=== PATIENT | female | born 1965 | race Two or more races ===

== ENCOUNTER 2019-01-10 17:47 | Emergency (ER) | payer OTHER ==
[~2019-01-10] VITALS: Ht 165.1 cm; Wt 79.4 kg
[~2019-01-10 17:47] MED LIST: KETO10TA2 PO; LAMICTAL200 M1; REMERON30 MG; RISPERDAL2 MG; SYNTHROID75 MCG; XANAX2 MG
[2019-01-10] MEDS ORDERED: LIPITOR20 MG (18:09)
[2019-01-10] MEDS ORDERED: SEROQUEL XR200 MG (18:09)
[2019-01-10] MEDS ORDERED: TRAZODONE HCL100 MG (18:10)
== END 2019-01-10 21:16 | disposition home or self-care (01) ==
LOC: ER 17:47
DX: M54.6 Pain in thoracic spine (principal); S39.012S Strain of muscle, fascia and tendon of lower back, sequela; X50.0XXS Overexertion from strenuous movement or load, sequela

== ENCOUNTER 2021-04-29 07:00 | Inpatient (IN) | payer OTHER ==
[~2021-04-29] VITALS: Ht 167.6 cm; Wt 77.1 kg
[~2021-04-29 07:00] MED LIST changes: +LIPITOR20 MG; +SEROQUEL XR200 MG; +TRAZODONE HCL100 MG
[2021-04-29] MEDS ORDERED: TRAZADONE PO (08:01)
[2021-04-29] MEDS ORDERED: NEURIN SL (08:01)
[2021-05-01] MEDS ORDERED: COZAAR25 MG PO (13:21)
== END 2021-05-08 10:55 | disposition home or self-care (01) | DRG 743 ==
LOC: OB/GYN 05-06 05:50 → O/R 05-06 05:50 → OB/GYN 05-06 07:00
PROVIDERS: ADMIT Obstetrics & Gynecology; ATTEND Obstetrics & Gynecology
PROC: 0UT70ZZ Resection of Bilateral Fallopian Tubes, Open Approach (ICD-10-PCS; 2021-05-06)
PROC: 0UT20ZZ Resection of Bilateral Ovaries, Open Approach (ICD-10-PCS; 2021-05-06)
PROC: 0UT90ZZ Resection of Uterus, Open Approach (ICD-10-PCS; principal; 2021-05-06 07:00)
DX: D25.1 Intramural leiomyoma of uterus (principal); D25.0 Submucous leiomyoma of uterus; N83.292 Other ovarian cyst, left side; N83.291 Other ovarian cyst, right side; Z20.822 Contact with and (suspected) exposure to COVID-19